=== PATIENT | male | born 1990 | race Caucasian/White ===

== ENCOUNTER 2019-08-06 16:49 | Emergency (ER) | payer MEDICAID ==
[~2019-08-06] VITALS: Ht 170.2 cm; Wt 88.6 kg
[2019-08-06 16:50] VITALS: BP 130/82
[2019-08-06] MEDS ORDERED: KETOROLAC 30 MG/1 ML ONE (17:55)
[2019-08-06] MEDS ORDERED: METHOCARBAMOL 750 MG TABLET ONE (17:55)
[2019-08-06] MEDS ORDERED: KETOROLAC 30 MG/1 ML IM ONE (18:00)
[2019-08-06] MEDS ORDERED: METHOCARBAMOL 750 MG TABLET PO ONE (18:00)
== END 2019-08-06 18:31 | disposition home or self-care (01) ==
LOC: ED 17:15
DX: S39.012A Strain of muscle, fascia and tendon of lower back, initial encounter (principal); I10 Essential (primary) hypertension; J45.909 Unspecified asthma, uncomplicated; X58.XXXA Exposure to other specified factors, initial encounter; Y93.89 Activity, other specified; Y92.89 Other specified places as the place of occurrence of the external cause; Y99.8 Other external cause status
CPT/HCPCS: 99283; J1885

== ENCOUNTER 2020-10-19 21:50 | Emergency (ER) | payer MEDICAID ==
[~2020-10-19] VITALS: Ht 170.2 cm; Wt 95.4 kg
[2020-10-19] MEDS ORDERED: DEXAMETHASONE 4 MG TABLET ONE (23:12)
[2020-10-19] MEDS ORDERED: AMOXICILLIN/CLAV 875-125MG TABLET ONE (23:12)
[2020-10-19] MEDS ORDERED: HYDROcodone/APAP 5/325 TABLET ONE (23:13)
--- NOTE | 2020-10-19 23:18 | NUR ---
Pt medicated per order, nkda. TC taken by Dr May. AIDET provided.
[2020-10-19] MEDS ORDERED: AMOXICILLIN/CLAV 875-125MG TABLET PO ONE (23:30)
[2020-10-19] MEDS ORDERED: HYDROcodone/APAP 5/325 TABLET PO ONE (23:30)
[2020-10-19] MEDS ORDERED: DEXAMETHASONE 4 MG TABLET PO ONE (23:30)
[2020-10-19 23:56] VITALS: BP 138/71
== END 2020-10-19 23:58 | disposition home or self-care (01) ==
LOC: ED 23:00
DX: J02.8 Acute pharyngitis due to other specified organisms (principal); B97.89 Other viral agents as the cause of diseases classified elsewhere; K12.2 Cellulitis and abscess of mouth; I10 Essential (primary) hypertension; J45.909 Unspecified asthma, uncomplicated
CPT/HCPCS: 87081; 87147; 87880; 99284